=== PATIENT | male | born 1960 | race Caucasian/White ===

== ENCOUNTER 2016-10-10 06:51 | Day surgery (SDC) | payer OTHER ==
[~2016-10-10] VITALS: Ht 182.9 cm; Wt 120.2 kg
[~2016-10-10 06:51] MED LIST: ADVIL200 MG PO; AZOR 10/20 M1 TABLET PO; FLEXERIL5 MG PO; NEXIUM10 MG PO; SPIRONOLACTONE50 MG PO; ULTRAM50 MG PO; VITAMIN D2000 UNI1 PO
== END 2016-10-10 08:56 | disposition home or self-care (01) ==
LOC: PAIN 06:51 → SDC 07:30 → PAIN 07:30
PROC: 01513ZZ Destruction of Cervical Nerve, Percutaneous Approach (ICD-10-PCS; principal; 2016-10-10)
DX: M47.812 Spondylosis without myelopathy or radiculopathy, cervical region (principal); M47.816 Spondylosis without myelopathy or radiculopathy, lumbar region; F41.9 Anxiety disorder, unspecified; M41.9 Scoliosis, unspecified; Z88.2 Allergy status to sulfonamides; Z88.8 Allergy status to other drugs, medicaments and biological substances
CPT/HCPCS: J1030; J2250; J3010; S0020

== ENCOUNTER 2016-10-17 06:49 | Day surgery (SDC) | payer OTHER ==
[~2016-10-17] VITALS: Ht 180.3 cm; Wt 121.6 kg
[~2016-10-17 06:49] MED LIST changes: +MOTRIN800 MG PO
== END 2016-10-17 08:40 | disposition home or self-care (01) ==
LOC: PAIN 06:49 → SDC 07:30 → PAIN 07:30
DX: M47.816 Spondylosis without myelopathy or radiculopathy, lumbar region (principal); M54.5 Low back pain; M51.36 Other intervertebral disc degeneration, lumbar region; M47.812 Spondylosis without myelopathy or radiculopathy, cervical region; G89.29 Other chronic pain; M41.9 Scoliosis, unspecified; I10 Essential (primary) hypertension; K21.9 Gastro-esophageal reflux disease without esophagitis; R73.03 Prediabetes; E55.9 Vitamin D deficiency, unspecified; Z87.891 Personal history of nicotine dependence; Z79.891 Long term (current) use of opiate analgesic; Z88.2 Allergy status to sulfonamides
CPT/HCPCS: J1030; J2250; J3010; S0020

== ENCOUNTER 2017-10-20 09:50 | Day surgery (SDC) | payer OTHER ==
[~2017-10-20] VITALS: Ht 182.9 cm; Wt 124.7 kg
[~2017-10-20 09:50] MED LIST changes: +NEURONTIN100 MG PO
== END 2017-10-20 11:50 | disposition home or self-care (01) ==
LOC: PAIN 09:50 → SDC 10:15 → PAIN 11:50
PROC: 3E0T3TZ Introduction of Destructive Agent into Peripheral Nerves and Plexi, Percutaneous Approach (ICD-10-PCS; principal; 2017-10-20)
PROC: BR161ZZ Fluoroscopy of Lumbar Facet Joint(s) using Low Osmolar Contrast (ICD-10-PCS; principal; 2017-10-20)
DX: M47.816 Spondylosis without myelopathy or radiculopathy, lumbar region (principal); M51.36 Other intervertebral disc degeneration, lumbar region; M41.9 Scoliosis, unspecified; Z87.891 Personal history of nicotine dependence; G89.29 Other chronic pain; Z88.2 Allergy status to sulfonamides; Z88.8 Allergy status to other drugs, medicaments and biological substances
CPT/HCPCS: J1030; J2250; S0020